=== PATIENT | male | born 1955 | race Caucasian/White ===

== ENCOUNTER 2023-07-07 09:16 | Outpatient (OUT) | payer MEDICARE, SELFPAY ==
--- NOTE | 2023-07-07 09:25 | US_ITS ---
The [address] [address] Patient Name: VERONICA JOSEPH MRN: [id number] date: 1955 Sex: M Assigned Patient Location: Current Patient Location: Accession/Order Number: [id number] Exam Date: 07/07/2023 09:33 Report Date: 07/08/2023 10:01 At the request of: ALIYAH FROST Procedure: US renal BI EXAMINATION: US renal BI HISTORY: Dysuria, Hematuria COMPARISON: No relevant comparison available. TECHNIQUE: Ultrasound examination was performed of the kidneys and urinary bladder. FINDINGS: RIGHT KIDNEY: 3 mm nonobstructing stone within inferior pole. No pelvocaliectasis or mass. Normal renal cortical parenchymal echogenicity. Color Doppler demonstrates blood flow within the kidney. Kidney: 10.8 x 5.5 x 6.2 cm LEFT KIDNEY: A slightly heterogeneous 2.6 x 2.3 x 2.6 cm masslike area within the cortex of the inferior pole. . Nonobstructing 2 mm stone within mid body. Color Doppler demonstrates blood flow within the kidney. Kidney: 11.2 x 4.8 x 5.8 cm BLADDER: No visible wall thickening, mass, or calculi. OTHER: 2.9 cm hypoechoic area noted within right hepatic lobe; no appreciable internal blood flow on color Doppler. US/US renal BI IMPRESSION: 1. Bilateral nonobstructing nephrolithiasis. 2. Mass versus column of Jus within left kidney. CT abdomen without and with IV contrast is recommended for further evaluation. 3. Nonspecific hepatic lesion. This could also be evaluated during CT imaging of the abdomen. Electronically authenticated by: MEY TAMAYO Date: 07/08/2023 10:01
[2023-07-07 11:02] LABS: Alanine Aminotransferase 23 U/L (16-63); Albumin Globulin Ratio 1.1; Albumin Level 3.5 g/dL (3.4-5.0); Alkaline Phosphatase 76 U/L (46-116); Anion Gap 11.2; Aspartate Amino Transferase 12 U/L (15-37); Bilirubin Total 0.6 mg/dL (0.2-1.0); Carbon Dioxide 30.7 mmol/L (21.0-32.0); Chloride 103 mmol/L (98-107); Chol HDL Ratio 3.3; Cholesterol 198 mg/dL (<=200); Estimated GFR (African America >60 (>=60); Estimated GFR (Non-African Ame >60 (>=60); Globulin 3.1 g/dL; Glucose 92 mg/dL (74-106); HDL Cholesterol 60 mg/dL (40-60); LDL Cholesterol Calculated 124.8 mg/dL; Potassium 3.9 mmol/L (3.5-5.1); Sodium 141 mmol/L (136-145); Thyroid Stimulating Hormone 3.701 uIU/mL (0.358-3.740); Total Protein 6.6 g/dL (6.4-8.2); Triglycerides 66 mg/dL (<=150); VLDL CHOLESTEROL 13.2 mg/dL
== END 2023-07-07 09:17 | disposition home or self-care (01) ==
LOC: US 09:16
PROVIDERS: PCP Nurse Practitioner; Visit Provider Nurse Practitioner
DX: Z00.00 Encounter for general adult medical examination without abnormal findings (principal); R30.0 Dysuria; R31.9 Hematuria, unspecified; I10 Essential (primary) hypertension; Z13.220 Encounter for screening for lipoid disorders; Z13.29 Encounter for screening for other suspected endocrine disorder
CPT/HCPCS: 36415; 76775; 80053; 80061; 84443

== ENCOUNTER 2023-07-13 08:55 | Outpatient (OUT) | payer MEDICARE, SELFPAY ==
--- NOTE | 2023-07-13 09:01 | CT_ITS ---
[address] [address] Patient Name: VERONICA JOSEPH MRN: [id number] date: 1955 Sex: M Assigned Patient Location: CT Current Patient Location: CT Accession/Order Number: [id number] Exam Date: 07/13/2023 09:40 Report Date: 07/13/2023 11:26 At the request of: ALIYAH FROST Procedure: CT abdomen wo/w con EXAMINATION: CT abdomen wo/w con HISTORY: Left Kidney Mass, Hepatic Lesion, Kidney Stone COMPARISON: Ultrasound renal bilateral 07/07/2023 TECHNIQUE: Axial, Coronal, and Sagittal images were obtained without and/or with IV contrast as indicated by examination type. Dose reduction techniques were achieved by using automated exposure control and/or adjustment of mA and/or kV according to patient size and/or use of iterative reconstruction technique FINDINGS: LUNG BASES: No visible pulmonary or pleural disease. LIVER: Multiple round hypodensities within the liver compatible with simple cysts; largest is 8.6 cm. BILIARY: No visible dilatation or calcification. PANCREAS: No lesion, fluid collection, ductal dilatation, or atrophy. SPLEEN: No enlargement or focal lesion. ADRENALS: No mass or enlargement. KIDNEYS: A few small nonobstructing stones bilaterally. No mass, cysts, or significant cortical thinning. Unremarkable ureters bilaterally. BOWEL/MESENTERY: No visible mass, obstruction, or bowel wall thickening. AORTA/VASCULAR: No aneurysm or dissection. RETROPERITONEUM: No mass or adenopathy. ABDOMINAL WALL: No mass or hernia. BONES: No bony lesion or fracture. OTHER: Negative. CT/CT abdomen wo/w con IMPRESSION: 1. Multiple benign-appearing cysts within the liver; no additional follow-up recommended. 2. No renal mass with specific attention to the left kidney. 3. Nonobstructing bilateral nephrolithiasis; a few small stones bilaterally. Electronically authenticated by: MEY TAMAYO Date: 07/13/2023 11:26
== END 2023-07-13 08:56 | disposition home or self-care (01) ==
LOC: CT 08:55
PROVIDERS: PCP Nurse Practitioner; Visit Provider Nurse Practitioner
DX: N20.0 Calculus of kidney (principal); N28.89 Other specified disorders of kidney and ureter; K76.89 Other specified diseases of liver
CPT/HCPCS: 74170; Q9967